=== PATIENT | male | born 2000 | race Caucasian/White ===

== ENCOUNTER 2018-12-10 12:24 | Emergency (ER) | payer OTHER ==
[~2018-12-10] VITALS: Ht 167.6 cm; Wt 60.0 kg
[2018-12-10 12:43] VITALS: BP 99/65
== END 2018-12-10 13:51 | disposition home or self-care (01) ==
LOC: ED 13:36
DX: H10.023 Other mucopurulent conjunctivitis, bilateral (principal)
CPT/HCPCS: 99283